=== PATIENT | male | born 1960 | race Caucasian/White ===

== ENCOUNTER → 2021-09-27 | Outpatient (CLI) | payer OTHER ==
[~2021-09-27] MED LIST: Bentyl20 MG; METR500 PO; Quinapril HCl20 MG PO
== END | disposition home or self-care (01) ==
LOC: LAB SHORT 18:07
DX: R05.9 Cough, unspecified (principal)
CPT/HCPCS: 87807

== ENCOUNTER 2021-11-27 07:43 | Day surgery (SDC) | payer OTHER ==
[~2021-11-27] VITALS: Ht 188 cm; Wt 88.3 kg
[2021-11-27] MEDS ORDERED: IBUP200 (08:51)
[2021-11-27] MEDS ORDERED: QUIN5 (08:51)
--- NOTE | 2021-11-27 09:35 | NUR ---
11/27/21 0935 Libia Horvath EPI 1MG ADDED TO FIRST BAG OF LR USED FOR JOINT IRRIGATION. 0.15ML IF EPI 1MG/ML ADDED TO 30ML OF BUPIVICAINE 0.5% TO CREATE A SOLUTION OF BUPIVICAINE 0.5% WITH EPI 1:200,000.
== END 2021-11-27 10:50 | disposition home or self-care (01) ==
LOC: ORSCSDS 07:43
PROVIDERS: Orthopaedic Surgery
PROC: 0SBC4ZZ Excision of Right Knee Joint, Percutaneous Endoscopic Approach (ICD-10-PCS; principal; 2021-11-27 08:45)
DX: S83.241A Other tear of medial meniscus, current injury, right knee, initial encounter (principal); S83.281A Other tear of lateral meniscus, current injury, right knee, initial encounter; I10 Essential (primary) hypertension; Z79.899 Other long term (current) drug therapy
CPT/HCPCS: J0171; J1100; J1885; J2250; J2405; J2704; J3010; J3370; J7050; J7120

== ENCOUNTER → 2024-09-29 | Outpatient (CLI) | payer BC ==
[~2024-09-29] MED LIST changes: +Fosinopril Sodi20 MG PO; +IBUP200; +MOLNUPIRAVIR (200 MG PO; +QUIN5; +REVATIO20 MG
[2024-09-29 09:18] LABS: Source, Urine Clean Catch
[2024-09-29 12:51] LABS: Appearance, Urine Clear (Clear); Bilirubin, Urine Neg (Neg); Blood, Urine Neg (Neg); Color, Urine Yellow (P-Yellow); Glucose Qualitative, Urine Neg (Neg); Ketones, Urine Neg (Neg); Leukocyte Esterase, Urine Neg (Neg); Nitrite, Urine Neg (Neg); Protein, Urine Neg (Neg); Specific Gravity, Urine 1.015 (1.003-1.022); Urobilinogen, Urine NORM (Normal)
== END | disposition home or self-care (01) ==
LOC: LAB 08:29 → LAB SHORT 08:29 → LAB FUT 09-29 08:35
PROVIDERS: Internal Medicine
DX: R97.20 Elevated prostate specific antigen [PSA] (principal)
CPT/HCPCS: 81003

== ENCOUNTER 2024-10-01 11:51 | Day surgery (SDC) | payer BC ==
[~2024-10-01] VITALS: Ht 188 cm; Wt 90.0 kg
[~2024-10-01 11:51] MED LIST changes: -MOLNUPIRAVIR (200 MG PO
[2024-10-01] MEDS ORDERED: MOLNUPIRAVIR (200 MG PO (12:20)
[2024-10-01] MEDS ORDERED: Lactated Ringer's 1,000 ML IV ONE ×2 (12:34→12:53)
[2024-10-01] MEDS ORDERED: propofoL 40 ML IV ONE (12:53)
[2024-10-01 13:59] VITALS: BP 116/81
== END 2024-10-01 13:51 | disposition home or self-care (01) ==
LOC: ORSCSDS 11:51
PROVIDERS: Surgery
PROC: 0DJD8ZZ Inspection of Lower Intestinal Tract, Via Natural or Artificial Opening Endoscopic (ICD-10-PCS; principal; 2024-10-01 13:00)
DX: Z12.11 Encounter for screening for malignant neoplasm of colon (principal); I10 Essential (primary) hypertension; Z79.899 Other long term (current) drug therapy
CPT/HCPCS: J2704; J7120